=== PATIENT | male | born 1980 | race Caucasian/White ===

== ENCOUNTER 2018-07-29 18:49 | Emergency (ER) | payer OTHER ==
[~2018-07-29] VITALS: Ht 182.9 cm; Wt 79.4 kg
[2018-07-29 19:14] VITALS: BP 124/69
[2018-07-29] MEDS ORDERED: CLEOCIN PO STA (19:18)
--- NOTE | 2018-07-29 19:23 | ER.PDOC ---
General Chief Complaint: General Complaint Stated Complaint: SWOLLEN NOSE, FEVER Time seen by MD: 19:07 Exam Limitations: no limitations History of Present Illness Initial Comments Pt has a furuncle in his nose and the nose is swollen and hurting. Timing/Duration: 1 week Severity: mild Location: facial Quality: painful Identified Cause: no Prior symptoms/Treatment: Similar symptoms previous Allergies: Coded Allergies: No Known Allergies (Unverified , 07/29/18) Past Medical History Medical History: no pertinent history Surgical History: shoulder Family History Significant Family History: no pertinent family hx Social History Smoking: greater than 1 pack/day Alcohol Use: heavy Drug Use: marijuana Reviewed Nursing Reviewed: Nursing Assessment Constitutional: no symptoms reported EENTM: see HPI Respiratory: no symptoms reported Cardiovascular: no symptoms reported Gastrointestinal: no symptoms reported Genitourinary: no symptoms reported Musculoskeletal: no symptoms reported Skin: see HPI Psychiatric/Neurological: no symptoms reported Endocrine: no symptoms reported Hematologic/Lymphatic: no symptoms reported All Other Systems: Reviewed and Negative Physical Exam General Appearance: alert, no distress Skin: warm/dry, nml color Location: generalized, anterior, face Character: symmetric, maculopapular With: warmth, tenderness, swelling Extremities: non-tender, nml ROM, no edema EENT: eyes nml inspection, lips/gums nml Neck: trachea midline, no swelling Respiratory: no resp. distress, breath sounds nml CVS: reg. rate & rhythm, heart sounds nml Abdomen: non-tender, no organomegaly NEURO/PSYCH: oriented x 3, CN's nml as tested, motor nml, sensation nml, mood/ affect nml Progress Progress Would start the pt on Clindamycin. Departure Time of Disposition: 19:22 Disposition: 01 HOME, SELF-CARE Impression: Primary Impression: Furuncle Condition: Stable Hospital Course Lesion non flutuant. Will treat with ABX. Referrals: PCP,UNKNOWN (PCP) PRIMARY CARE PROVIDER Duration or Time Spent with Pa: ILYA MCCLELLAND MD Jul 29, 2018 19:23
[2018-07-29] MEDS ORDERED: CLEOCIN ONE ×2 (19:34→19:40)
[2018-07-29 19:53] VITALS: BP 124/69
--- NOTE | 2018-07-29 20:08 | NUR ---
[facility]INDAMY[facility]IN PT CALLED TO ER NURSES STATION REGARDING COST OF MEDICATION. PT REQUESTS A CHEAPER MEDICATION. THIS NURSE NOTIFIED DR. FORD. VERBAL ORDER FOR AMOXICILLIN 500 MG CAPSULE THREE TIMES A DAY X 7 DAYS RECEIVED. ORDER CALLED TO [facility] AT PER PT REQUEST.
== END 2018-07-29 19:43 | disposition home or self-care (01) ==
LOC: ER 18:49
DX: J34.0 Abscess, furuncle and carbuncle of nose (principal); F17.210 Nicotine dependence, cigarettes, uncomplicated; F12.10 Cannabis abuse, uncomplicated
CPT/HCPCS: 99283